=== PATIENT | male | born 1955 | race African-American/Black ===

== ENCOUNTER 2022-06-15 15:26 | Emergency (ER) | payer SELFPAY ==
[~2022-06-15] VITALS: Ht 177.8 cm; Wt 70.0 kg
[2022-06-15 16:27] VITALS: BP 126/70
== END 2022-06-15 19:07 | disposition home or self-care (01) ==
LOC: ER 15:26
DX: Z76.0 Encounter for issue of repeat prescription (principal); F20.9 Schizophrenia, unspecified; E78.00 Pure hypercholesterolemia, unspecified; Z88.8 Allergy status to other drugs, medicaments and biological substances
CPT/HCPCS: 99283

== ENCOUNTER 2022-06-15 19:25 | Emergency (ER) | payer MEDICAID ==
[~2022-06-15] VITALS: Ht 177.8 cm; Wt 95.0 kg
[2022-06-15] MEDS ORDERED: ACETAMINOPHEN 500MG TABLET PO ONE (23:15)
[2022-06-16 09:45] VITALS: BP 136/62
== END 2022-06-16 10:07 ==
LOC: ER 19:25
DX: M79.671 Pain in right foot (principal); F12.10 Cannabis abuse, uncomplicated; E78.00 Pure hypercholesterolemia, unspecified; Z86.59 Personal history of other mental and behavioral disorders
CPT/HCPCS: 99285

== ENCOUNTER 2024-01-05 11:26 | Emergency (ER) | payer MEDICAID ==
[~2024-01-05] VITALS: Ht 180.3 cm; Wt 95.3 kg
[2024-01-05 11:36] VITALS: O2SAT 98
[2024-01-05 13:52] VITALS: BP 133/77; PULSE 72; RESP 18; TEMP 98.2
== END 2024-01-05 13:59 | disposition home or self-care (01) ==
LOC: ER 11:26
DX: M79.642 Pain in left hand (principal); M79.641 Pain in right hand; F12.90 Cannabis use, unspecified, uncomplicated; Z13.1 Encounter for screening for diabetes mellitus
CPT/HCPCS: 82962; 99282

== ENCOUNTER 2024-01-05 15:00 | Emergency (ER) | payer MEDICAID ==
[~2024-01-05] VITALS: Ht 177.8 cm; Wt 95.3 kg
[2024-01-05 15:17] VITALS: BP 120/69; PULSE 90; RESP 16; TEMP 98.2; O2SAT 98
[2024-01-05 16:08] LABS: CARBON DIOXIDE 30 mEq/L (21-32); CHLORIDE 102 mEq/L (98-107); POTASSIUM 4.2 mEq/L (3.5-5.1); SODIUM 135 mEq/L (136-145)
[2024-01-05 16:09] LABS: CALCIUM 9.2 mg/dL (8.7-10.4)
[2024-01-05 16:13] LABS: CREATININE 0.8 mg/dL (0.6-1.3)
[2024-01-05 16:14] LABS: GLUCOSE 102 mg/dL (70-105); UREA NITROGEN BLOOD 8 mg/dL (9-23)
== END 2024-01-05 17:02 | disposition home or self-care (01) ==
LOC: ER 15:00
DX: Z13.89 Encounter for screening for other disorder (principal); E78.00 Pure hypercholesterolemia, unspecified; F12.90 Cannabis use, unspecified, uncomplicated; F20.9 Schizophrenia, unspecified
CPT/HCPCS: 36415; 80048; 99283